=== PATIENT | male | born 1995 | race Caucasian/White ===

== ENCOUNTER 2019-06-16 16:28 | Emergency (ER) | payer BC ==
[~2019-06-16] VITALS: Ht 182.9 cm; Wt 97.7 kg
[2019-06-16 16:40] VITALS: BP 117/58; TEMP 98.7
[2019-06-16] MEDS ORDERED: CEPHALEXIN500 M1 PO (18:30)
[2019-06-16 19:10] VITALS: PULSE 88
== END 2019-06-16 19:20 | disposition home or self-care (01) ==
LOC: COL.ER 16:28
DX: L60.0 Ingrowing nail (principal); L08.9 Local infection of the skin and subcutaneous tissue, unspecified